=== PATIENT | male | born 1965 | race Caucasian/White ===

== ENCOUNTER 2016-11-19 19:22 | Emergency (ER) | payer OTHER ==
[~2016-11-19] VITALS: Ht 172.7 cm; Wt 88.5 kg
[~2016-11-19 19:22] MED LIST: ALBUTEROL17 GM INH; AZITHROMYCIN250 MG PO; VOLTAREN75 MG PO
== END 2016-11-19 21:50 | disposition home or self-care (01) ==
LOC: CFTX 19:22 → CED 19:22 → CFTX 21:48
DX: L02.414 Cutaneous abscess of left upper limb (principal); E11.9 Type 2 diabetes mellitus without complications; F32.9 Major depressive disorder, single episode, unspecified; Z88.5 Allergy status to narcotic agent
CPT/HCPCS: 10060; 87070; 87077; 87186; 87205; 99282